=== PATIENT | female | born 1990 | race American Indian/Alaskan Native ===

== ENCOUNTER 2018-05-14 15:40 | Emergency (ER) | payer MEDICAID, OTHER ==
[2018-05-14 15:43] VITALS: BMI 24.3
[2018-05-14 15:47] VITALS: RESP 16; TEMP 98.1
--- NOTE | 2018-05-14 16:14 | C.PDOC ---
History Of Present Illness 27 yo female come in for evaluation of B/L breast tenderness, "missed menstrual period for 4 days", (+) diffuse lower abdominal cramping. Pt admits, took test 2 days ago and it was negative. Pt denies recent illness, fever, chills, sore throat , dyspnea, cough, CP, SOB, denies breast redness or nipple discharge, abd. pain, V/D, back pain, UTI sx, vaginal bleeding. Pt reports, , no hx of ectopic . Ambulate to Ed for evaluation, not in any apparent distress. Time Seen by Provider: 05/14/18 15:44 Chief Complaint (Nursing): Breast Problem History Per: Patient Past Medical History Reviewed: Historical Data, Nursing Documentation, Vital Signs Vital Signs: Last Vital Signs Temp 98.1 F 05/14/18 15:43 Pulse 100 H 05/14/18 15:43 Resp 16 05/14/18 15:43 BP 115/79 05/14/18 15:43 Pulse Ox 99 05/14/18 16:16 - Medical History PMH: Anemia, Asthma Denies: Chronic Kidney Disease - [employer] Procedures MONITORING NOS (08/22/14) INJECT/INFUSE NEC (06/26/15) Family History: States: Unknown Family Hx - Social History Hx Alcohol Use: No Hx Substance Use: No - Immunization History Hx Tetanus Toxoid Vaccination: Yes Hx Influenza Vaccination: Yes Hx Pneumococcal Vaccination: No Review Of Systems Except As Marked, All Systems Reviewed And Found Negative. Constitutional: Negative for: Fever, Chills Eyes: Negative for: Vision Change ENT: Negative for: Throat Pain, Throat Swelling Cardiovascular: Positive for: Other (B/L breasttenderness). Negative for: Chest Pain, Palpitations, Orthopnea, Edema, Light Headedness Respiratory: Negative for: Cough, Shortness of Breath Gastrointestinal: Negative for: Nausea, Vomiting, Abdominal Pain, Diarrhea Genitourinary: Negative for: Vaginal Bleeding Musculoskeletal: Negative for: Back Pain Skin: Negative for: Rash Neurological: Negative for: Weakness, Numbness, Headache, Dizziness Physical Exam - Physical Exam Appears: Well, Non-toxic, No Acute Distress Skin: Normal Color, Warm, Dry, No Rash Head: Normacephalic Eye(s): bilateral: PERRL Nose: No Flaring, No Discharge Oral Mucosa: Moist, No Drooling Tongue: Normal Appearing Lips: Normal Appearing Throat: No Erythema, No Drooling Neck: Normal ROM, Trachea Midline, Supple Chest: Symmetrical, No Deformity, No Tenderness, Other (normal B/L breast exam. NO palpable mass, no erythema. nipple normal exam B/L.) Cardiovascular: Rhythm Regular, No Murmur, No JVD Respiratory: No Decreased Breath Sounds, No Accessory Muscle Use, No Stridor, No Wheezing Gastrointestinal/Abdominal: Soft, No Tenderness, No Distention, No Guarding Back: No CVA Tenderness Extremity: Normal ROM, No Pedal Edema Neurological/Psych: Oriented x3, Normal Speech ED Course And Treatment - Laboratory Results Urine POC: Negative O2 Sat by Pulse Oximetry: 99 Pulse Ox Interpretation: Normal Progress Note: On re-eval, pt is afebrile, hemodynamicaly stable. Non-toxic. Ambulatory in ED with stable gait. PulseOx 99%RA. ENT: no acute findings. Neck: Supple, (-) midline tenderness. Lungs: CTA B/L, BS equal B/L. Breast B/L : normal exam B/L,no palpable mass, no erythema. Abd: benign, (-) guarding, (- ) rebound. Back: (-) CVA tenderness. Neurologicaly intact. Preg (-). beta quant (-). Pt has clinical findings c/w mastalgia, lower abdominal cramping, nos. Pt advised on course of ds. ref. to f/u with PMD, [facility] [facility] in 2-3 days for re- eval. return to Ed if any worsening or new changes. Disposition Counseled Patient/Family Regarding: Diagnosis, Need For Followup - Disposition [facility] Disposition: HOME/ ROUTINE Disposition Time: 16:20 Condition: STABLE Additional Instructions: Follow up with PMD, [facility] in 2-3 days for re-evaluation. return to ED if any new changes. Instructions: Mastalgia Forms: [facility] (Mozambican) - Clinical Impression Clinical Impression: Pain of breast
[2018-05-14 17:05] VITALS: BP 115/69; PULSE 71; O2SAT 98
== END 2018-05-14 17:04 | disposition home or self-care (01) ==
LOC: C.ER 15:40
DX: N64.4 Mastodynia (principal)